=== PATIENT | male | born 1940 | race Caucasian/White ===

== ENCOUNTER → 2016-03-10 | Outpatient (CLI) | payer MEDICARE, OTHER ==
--- NOTE | 2016-03-10 14:34 | P.HPBAR ---
Bariatric H&P - History & Physicial H&P Date: 03/10/16 History & Physicial: Visit/CC: Patient initial contact: Initial weight: 165.561 kg Initial weight in pounds: Height: Initial BMI: Last weight: Current weight: Current weight in pounds: Current BMI: [place] body weight (based on NIH guidelines): Excess body weight loss: The patient is a 75 year-old M who presents for Bariatric Assessment. The patient has complaints of intermittent GERD and dysphagia. He's had some problems with emesis. He has gained weight because eating soft food Past Medical History Past Medical History: Deep Vein Thrombosis (DVT), GERD/Reflux, Musculoskeletal Disorder, Neurologic Disorder Additional Past Medical History / Comment(s): Parkinsons Disease dx summer History of Any Multi-Drug Resistant Organisms: None Reported Past Surgical History: Bariatric Surgery, Cholecystectomy, Joint Replacement, Orthopedic Surgery Additional Past Surgical History / Comment(s): eye surgery, bilateral venous ablation December 2015 Smoking Status: Never smoker Surgical - Exam - General well developed, no distress - Eyes PERRL - ENT normal pinna - Neck no masses - Respiratory normal expansion - Cardiovascular Rhythm: regular - Abdomen Abdomen: soft Bariatric Assessment & Plan Plan: GERD. The patient will be scheduled for esophagram today. He will also undergo EGD and possible balloon dilatation of his gastric sleeve on Thursday if there is any significant stenosis of the gastric sleeve. Bariatric Checklist Checklist: Plan: Checklist: EGD: 1. Hiatal hernia: 2. H. Pylori: HgbA1c: Vitamin D: Smoking: Never smoker Primary care physician referral: Jude Eubanks) Psychiatry clearance: Cardiology clearance: Sleep study: Diet journal: VTE risk score: VTE risk level: Rehab needs at discharge:
--- NOTE | 2016-03-10 15:27 | FL ---
ESOPHOGRAM. HISTORY: Dysphagia and a patient with prior gastric band with subsequent gastric sleeve. The patient ingested thin liquid barium. There is moderate luminal narrowing at the gastroesophageal junction possibly related to scarring from prior gastric banding device resulting in moderate incompl ete obstruction. Retained contrast is seen within a mildly distended esophagus. The gastric sleeve ap pears to be patent with contrast flowing into the proximal duodenum. IMPRESSION: There is moderate luminal narrowing at the gastroesophageal junction possibly related to scarring from prior gastric banding device resulting in moderate incomplete obstruction.
[2016-03-10 15:37] VITALS: BP 139/86; PULSE 98; TEMP 97.9; BMI 42.1
== END | disposition home or self-care (01) ==
LOC: BARWHC3 13:44
PROVIDERS: ATTEND Surgery
DX: Z48.815 Encounter for surgical aftercare following surgery on the digestive system (principal); R13.10 Dysphagia, unspecified; Z98.84 Bariatric surgery status
CPT/HCPCS: 74220; G0463; 99211

== ENCOUNTER 2016-10-01 10:07 | Day surgery (SDC) | payer MEDICARE, OTHER ==
[2016-09-26 15:16] VITALS: BMI 41.5
[~2016-10-01 10:07] MED LIST: LIDOCAINE 1% 20 ML VIAL (10MG/ML) FOR IV START INTRADERMA PRN
[2016-10-01 10:29] VITALS: TEMP 98.2
[2016-10-01] MEDS: LACTATED RINGERS 1,000 ML IV SCH ×2 (10:29→11:18)
[2016-10-01 10:30] LABS: Glucose,Whole Blood 108 mg/dL (75-99)
[2016-10-01] MEDS ORDERED: PROPOFOL 10 MG/ML 20 ML VIAL IV ONE (11:18)
--- NOTE | 2016-10-01 11:20 | P.GSHP ---
History of Present Illness H&P Date: 10/01/16 Chief Complaint: Dysphagia This is a 68-year-old male who presents today for EGD. Patient previous history of gastric sleeve. He has had some issues with dysphagia. Presents today for EGD with possible balloon dilatation. Past Medical History Past Medical History: Atrial Fibrillation, CVA/TIA, Diabetes Mellitus, GERD/ Reflux, Neurologic Disorder, Osteoarthritis (OA), Sleep Apnea/CPAP/BIPAP Additional Past Medical History / Comment(s): Parkinsons Disease, TIA's, no cpap used, hx fatty liver, overactive bladder, cyst on left kidney and stone, having frequent dysphagia, stroke behind left eye recently-has had some injections History of Any Multi-Drug Resistant Organisms: None Reported Past Surgical History: Back Surgery, Bariatric Surgery, Cholecystectomy, Joint Replacement, Pacemaker Additional Past Surgical History / Comment(s): [place] cataracts, bilateral venous ablation , removal of uvula and deviated septum, gastric sleeve(3/4 stomach removed), lap band/later replaced/removed, spinal stimulator, spinal fusion, left knee replaced Past Anesthesia/Blood Transfusion Reactions: Motion Sickness, Postoperative Nausea & Vomiting (PONV) Additional Past Anesthesia/Blood Transfusion Reaction / Comment(s): PONV only once Type of Cardiac Device: Permanent Pacemaker Device Placement Date:: March 2016 Smoking Status: Former smoker - Past Family History Father Family Medical History: Cancer Brother(s) Family Medical History: Cancer, Myocardial Infarction ([place]) Medications and Allergies Home Medications Medication Instructions Recorded Confirmed Type Apixaban [Eliquis] 5 mg PO BID 08/20/15 10/01/16 History Carbidopa-Levodopa 10-100 mg 100 each PO BID 08/20/15 10/01/16 History [Sinemet 10-100] Cetirizine HCl [Zyrtec] 10 mg PO DAILY PRN 08/20/15 10/01/16 History Gabapentin [Neurontin] 300 mg PO TID 08/20/15 10/01/16 History Multivitamin [Men's Multi-Vitamin] 1 each PO DAILY 08/20/15 10/01/16 History Oxybutynin Chloride [Ditropan] 5 mg PO BID 08/20/15 10/01/16 History Vits A,C,E/Lutein/Minerals 1 each PO DAILY 08/20/15 10/01/16 History [Ocuvite with Lutein Tablet] Atorvastatin [Lipitor] 20 mg PO HS 03/11/16 10/01/16 History Carbidopa/Levodopa [Sinemet 25-100 2 each PO HS 03/11/16 10/01/16 History mg] Doxazosin Mesylate 1 mg PO BID 03/11/16 10/01/16 History Omeprazole 20 mg PO DAILY 03/11/16 10/01/16 History metFORMIN HCL [Glucophage] 500 mg PO BID 09/26/16 10/01/16 History Allergies Allergy/AdvReac Type Severity Reaction Status Date / Time No Known Allergies Allergy Verified 09/26/16 14:49 Surgical - Exam Vital Signs Temp Pulse BP Pulse Ox 98.2 F 88 132/82 97 10/01/16 10:20 10/01/16 10:20 10/01/16 10:20 10/01/16 10:20 - General well developed, no distress - Eyes PERRL - ENT normal pinna - Neck no masses - Respiratory normal expansion - Cardiovascular Rhythm: regular - Abdomen Abdomen: soft, non tender Results - Labs Abnormal Lab Results - Last 24 Hours (Table) 10/01/16 Range/Units 10:26 POC Glucose (mg/dL) 108 H (75-99) mg/dL Assessment and Plan Plan: History of dysphagia. We'll perform EGD with possible balloon dilatation of gastric sleeve.
--- NOTE | 2016-10-01 11:31 | P.OP ---
Date of Procedure: 10/01/16 Preoperative Diagnosis: Dysphagia Postoperative Diagnosis: Mild antral gastritis No evidence of gastric or esophageal obstruction Procedure(s) Performed: EGD Implants: Anesthesia: MAC Surgeon: Alexi Chacon Pathology: other (Antrum) Condition: stable Disposition: PACU Indications for Procedure: Operative Findings: Description of Procedure: The patient's placed on the endoscopy table in the lateral position. He received IV sedation. The gastroscope some placed oropharynx and passed into the esophagus and stomach. The patient appears gastric sleeve. The patient's placed through the sleeve and into the antrum and then through the pylorus into the first and second portion of the duodenum. The first and second portion of duodenum appeared normal. Scope was then brought back the antrum and there is some minimal inflammation in this area is biopsied. The scope was then withdrawn. There was no evidence of any obstruction of the gastric sleeve. There is no obstruction at the incisura. The entire gastric sleeve appeared normal. The proximal gastric pouch was slightly enlarged however there is no evidence of any obstruction. The GE junction was at 47 is. The distal esophagus appeared normal. And once again there was no obstruction near the GE junction. The scope was then withdrawn and the proximal esophagus appeared normal. The scope was withdrawn for patient.
[2016-10-01 12:03] VITALS: BP 119/62; PULSE 72
== END 2016-10-01 12:22 | disposition home or self-care (01) ==
LOC: ORWHC2ENDO 10:07
PROVIDERS: ATTEND Surgery
DX: K29.70 Gastritis, unspecified, without bleeding (principal); K21.9 Gastro-esophageal reflux disease without esophagitis; E11.9 Type 2 diabetes mellitus without complications; M19.90 Unspecified osteoarthritis, unspecified site; G47.30 Sleep apnea, unspecified; N32.81 Overactive bladder; G20 Parkinson's disease; Z79.01 Long term (current) use of anticoagulants; Z79.84 Long term (current) use of oral hypoglycemic drugs; Z79.899 Other long term (current) drug therapy; Z87.891 Personal history of nicotine dependence; Z86.73 Personal history of transient ischemic attack (TIA), and cerebral infarction without residual deficits; Z96.652 Presence of left artificial knee joint; Z95.0 Presence of cardiac pacemaker; Z98.84 Bariatric surgery status; Z98.1 Arthrodesis status; Z80.9 Family history of malignant neoplasm, unspecified
CPT/HCPCS: 43239; 88305; 88342; J2704

== ENCOUNTER → 2016-10-27 | Outpatient (CLI) | payer MEDICARE, OTHER ==
[2016-10-27 13:33] VITALS: BP 138/74; PULSE 95; TEMP 97.8; BMI 46.3
[2016-10-27 14:33] LABS: CH 28.6; CHCM 31.8; HCT 42.8 % (39.0-53.0); HDW 2.57; HGB 13.4 gm/dL (13.0-17.5); MCH 28.2 pg (25.0-35.0); MCHC 31.3 g/dL (31.0-37.0); MCV 90.2 fL (80.0-100.0); Mean Platelet Volume 7.8; RBC 4.75 m/uL (4.30-5.90); RDW 14.7 % (11.5-15.5); WBC 5.1 k/uL (3.8-10.6)
--- NOTE | 2016-10-27 14:46 | P.HPBAR ---
Bariatric H&P - History & Physicial H&P Date: 10/27/16 History & Physicial: Visit/CC: follow up egd Patient initial contact: Initial weight: 165.561 kg Initial weight in pounds: 365.00 Height: 5 ft 4 in Initial BMI: 62.6 Last weight: 269 Current weight: 122.289 kg Current weight in pounds: 269.60 Current BMI: 46.3 [place] body weight (based on NIH guidelines): 58.967 kg Excess body weight loss: 40.5% The patient is a 76 year-old M who presents for Bariatric Assessment. Patient presents for sleeve gastric a fall. He states he has had less nausea vomiting GERD since his sleeve dilation several months ago. Past Medical History Past Medical History: Atrial Fibrillation, CVA/TIA, Diabetes Mellitus, GERD/ Reflux, Neurologic Disorder, Osteoarthritis (OA), Sleep Apnea/CPAP/BIPAP Additional Past Medical History / Comment(s): Parkinsons Disease, TIA's, no cpap used, hx fatty liver, overactive bladder, cyst on left kidney and stone, having frequent dysphagia, stroke behind left eye recently-has had some injections History of Any Multi-Drug Resistant Organisms: None Reported Past Surgical History: Back Surgery, Bariatric Surgery, Cholecystectomy, Joint Replacement, Pacemaker Additional Past Surgical History / Comment(s): [place] cataracts, bilateral venous ablation , removal of uvula and deviated septum, gastric sleeve(3/4 stomach removed), lap band/later replaced/removed, spinal stimulator, spinal fusion, left knee replaced Past Anesthesia/Blood Transfusion Reactions: Motion Sickness, Postoperative Nausea & Vomiting (PONV) Additional Past Anesthesia/Blood Transfusion Reaction / Comm: PONV only once Type of Cardiac Device: Permanent Pacemaker Device Placement Date:: March 2016 Smoking Status: Former smoker - Past Family History Father Family Medical History: Cancer Brother(s) Family Medical History: Cancer, Myocardial Infarction ([place]) Surgical - Exam Vital Signs Temp Pulse BP 97.8 F 95 138/74 10/27/16 13:14 10/27/16 13:14 10/27/16 13:14 - General well developed, no distress - Eyes PERRL - Abdomen Abdomen: soft, non tender Bariatric Assessment & Plan Plan: Status post sleeve yesterday. Patient has lost approximately 100 pounds total weight loss. His nausea and GERD symptoms have improved since he had a sleeve dilated. His weight is remain stable. He'll follow-up in 8 weeks. Bariatric Checklist Checklist: Plan: Checklist: EGD: 1. Hiatal hernia: 2. H. Pylori: HgbA1c: Vitamin D: Smoking: Former smoker Primary care physician referral: Jude Eubanks) Psychiatry clearance: Cardiology clearance: Sleep study: Diet journal: VTE risk score: VTE risk level: Rehab needs at discharge:
[2016-10-27 14:53] LABS: ALT 30 U/L (21-72); AST 24 U/L (17-59); Alkaline Phosphatase 79 U/L (38-126); Anion Gap 6 mmol/L; Blood Urea Nitrogen 13 mg/dL (9-20); Calcium 8.9 mg/dL (8.4-10.2); Carbon Dioxide 30 mmol/L (22-30); Chloride 103 mmol/L (98-107); Glucose 144 mg/dL (74-99); Non-African American GFR(MDRD) >60 (>60 ml/min/1.73 sqM); Sodium 139 mmol/L (137-145); Total Bilirubin 0.6 mg/dL (0.2-1.3)
[2016-10-27 15:56] LABS: Vitamin B12 371 pg/mL
[2016-10-27 22:15] LABS: Hemoglobin A1C 8.2 % (4.2-6.1)
== END | disposition home or self-care (01) ==
LOC: BARWHC3 12:53
PROVIDERS: ATTEND Surgery
DX: Z09 Encounter for follow-up examination after completed treatment for conditions other than malignant neoplasm (principal); I48.91 Unspecified atrial fibrillation; K21.9 Gastro-esophageal reflux disease without esophagitis; E11.9 Type 2 diabetes mellitus without complications; Z86.73 Personal history of transient ischemic attack (TIA), and cerebral infarction without residual deficits; Z87.891 Personal history of nicotine dependence; Z98.84 Bariatric surgery status
CPT/HCPCS: 84425; 80053; 82607; 83036; 82746; 85027; 82306; 36415; G0463; 99211

== ENCOUNTER → 2017-01-05 | Outpatient (CLI) | payer MEDICARE, OTHER ==
[2017-01-05 14:42] VITALS: BP 149/80; PULSE 80; RESP 16; TEMP 97.7; BMI 42.4
--- NOTE | 2017-01-05 16:16 | P.HPBAR ---
Bariatric H&P - History & Physicial H&P Date: 01/05/17 History & Physicial: Visit/CC: sleeve follow-up Patient initial contact: Initial weight: 165.561 kg Initial weight in pounds: 365.00 Height: 5 ft 7 in Initial BMI: 57.2 Last weight: Current weight: 122.924 kg Current weight in pounds: 271.00 Current BMI: 42.4 [place] body weight (based on NIH guidelines): 67.132 kg Excess body weight loss: 43.3% The patient is a 76 year-old M who presents for Bariatric Assessment. The patient presents today for sleeve gastrectomy fall. His weight has been stable. He has had some minimal GERD. He is also complaining arthritis of his lower extremities. Past Medical History Past Medical History: Atrial Fibrillation, CVA/TIA, Diabetes Mellitus, GERD/ Reflux, Neurologic Disorder, Osteoarthritis (OA), Sleep Apnea/CPAP/BIPAP Additional Past Medical History / Comment(s): Parkinsons Disease, TIA's, no cpap used, hx fatty liver, overactive bladder, cyst on left kidney and stone, having frequent dysphagia, stroke behind left eye recently-has had some injections History of Any Multi-Drug Resistant Organisms: None Reported Past Surgical History: Back Surgery, Bariatric Surgery, Cholecystectomy, Joint Replacement, Pacemaker Additional Past Surgical History / Comment(s): [place] cataracts, bilateral venous ablation , removal of uvula and deviated septum, gastric sleeve(3/4 stomach removed), lap band/later replaced/removed, spinal stimulator, spinal fusion, left knee replaced Past Anesthesia/Blood Transfusion Reactions: Motion Sickness, Postoperative Nausea & Vomiting (PONV) Additional Past Anesthesia/Blood Transfusion Reaction / Comm: PONV only once Type of Cardiac Device: Permanent Pacemaker Device Placement Date:: March 2016 Smoking Status: Former smoker - Past Family History Father Family Medical History: Cancer Brother(s) Family Medical History: Cancer, Myocardial Infarction ([place]) Surgical - Exam Vital Signs Temp Pulse Resp BP 97.7 F 80 16 149/80 01/05/17 14:39 01/05/17 14:39 01/05/17 14:39 01/05/17 14:39 - General well developed, no distress - Abdomen Abdomen: soft, non tender Bariatric Assessment & Plan Plan: The patient will follow-up in 3 months. His weight loss has stabilized. The patient minutes to eating snacks during the day I recommended he try to avoid snacks. He will follow-up in 3 months. Bariatric Checklist Checklist: Plan: Checklist: EGD: 1. Hiatal hernia: 2. H. Pylori: HgbA1c: Vitamin D: Smoking: Former smoker Primary care physician referral: Jude Eubanks) Psychiatry clearance: Cardiology clearance: Sleep study: Diet journal: VTE risk score: VTE risk level: Rehab needs at discharge:
== END ==
LOC: BARWHC3 13:10
PROVIDERS: ATTEND Surgery
DX: Z48.815 Encounter for surgical aftercare following surgery on the digestive system (principal); Z98.84 Bariatric surgery status; Z87.891 Personal history of nicotine dependence
CPT/HCPCS: 99211